=== PATIENT | male | born 1990 | race Caucasian/White ===

== ENCOUNTER 2018-12-29 17:30 | Emergency (ER) | payer SELFPAY ==
[2018-12-29] MEDS: DIPHTH/TET/ACEL PERTUSS (ADULT) 0.5 ML VIAL IM* (19:55)
[2018-12-29] MEDS: ACETAMINOPHEN 325 MG TAB PO (19:55)
[2018-12-29 22:50] LABS: AMPHETAMINE/METHAMPHETAMINE Negative (NEGATIVE); BARBITURATES Negative (NEGATIVE); BENZODIAZEPINES Negative (NEGATIVE); CANNABINOIDS Negative (NEGATIVE); COCAINE Negative (NEGATIVE); OPIATES Negative (NEGATIVE)
== END 2018-12-29 23:44 | disposition home or self-care (01) ==
LOC: FTE 17:30 → E/R 23:44
DX: T54.2X1A Toxic effect of corrosive acids and acid-like substances, accidental (unintentional), initial encounter (principal); Z23 Encounter for immunization
CPT/HCPCS: 80307; 90471; 90715; 99283-25